=== PATIENT | male | born 1950 | race Caucasian/White ===

== ENCOUNTER 2023-08-01 08:11 | Emergency (ER) | payer OTHER ==
[~2023-08-01] VITALS: Ht 175.3 cm; Wt 80.7 kg
[2023-08-01] MEDS ORDERED: AMLODIPINE (08:14)
[2023-08-01] MEDS ORDERED: FENOFIBRATE50 MG (08:14)
[2023-08-01] MEDS ORDERED: COZAAR25 MG (08:14)
[2023-08-01] MEDS ORDERED: ATORVASTATIN CA80 MG (08:14)
[2023-08-01] MEDS ORDERED: TOPROL XL25 M1 (08:14)
[2023-08-01] MEDS ORDERED: UROXATRAL10 MG PO (08:15)
[2023-08-01] MEDS ORDERED: PLAVIX75 MG PO (08:15)
[2023-08-01] MEDS ORDERED: CIALIS2.5 MG (08:16)
[2023-08-01] MEDS ORDERED: CHILDREN'S ASPI81 MG PO (08:16)
[2023-08-01] MEDS ORDERED: FINASTERIDE1 MG PO (08:17)
[2023-08-01] MEDS ORDERED: DICLOFENAC SODI75 MG PO (08:35)
[2023-08-01] MEDS ORDERED: NORFLEX100MG PO (08:35)
== END 2023-08-01 09:44 | disposition home or self-care (01) ==
LOC: ER 08:11
DX: M54.9 Dorsalgia, unspecified (principal); I11.9 Hypertensive heart disease without heart failure; E78.00 Pure hypercholesterolemia, unspecified; I10 Essential (primary) hypertension
CPT/HCPCS: 96372; 99284; J1885; J3301